=== PATIENT | male | born 1935 | race Caucasian/White ===

== ENCOUNTER 2023-05-13 14:51 | Emergency (ER) | payer MEDICARE ==
[~2023-05-13] VITALS: Ht 160 cm; Wt 70.3 kg
[2023-05-13] MEDS ORDERED: NACL 0.9% 1,000 ML IV SCH (14:55)
[2023-05-13] MEDS ORDERED: cefTRIAXone 1,000 MG in DEXT 5% MINI-BAG PLUS 50 ML IV ONE (14:55)
[2023-05-13 15:05] VITALS: BP 108/59; PULSE 141; RESP 19; TEMP 97.9; O2SAT 98
[2023-05-13] MEDS ORDERED: ceFAZolin 1,000 MG VIAL ONE (15:05)
[2023-05-13] MEDS ORDERED: LORazepam 2 MG/ML VIAL ONE (15:08)
[2023-05-13] MEDS ORDERED: cefTRIAXone 1,000 MG VIAL ONE (15:08)
[2023-05-13] MEDS ORDERED: LORazepam 2 MG/ML VIAL IVP ONE ×2 (15:10→16:30)
[2023-05-13 15:54] LABS: BASOPHILS # (AUTO) 0.1 K/uL (0.00-0.22); BASOPHILS % (AUTO) 0.3 % (0.0-2.0); HEMATOCRIT 41.7 % (36-52); HEMOGLOBIN 13.4 g/dL (12.0-18.0); LYMPHOCYTES # (AUTO) 1.9 K/uL (2.0-11.5); LYMPHOCYTES % (AUTO) 10.6 % (20.5-51.1); MEAN CORPUSCULAR HEMOGLOBIN 31 pg (27-31); MEAN CORPUSCULAR HGB CONC 32 g/dL (33-37); MEAN CORPUSCULAR VOLUME 95.5 fL (80-94); MONOCYTES # (AUTO) 1.7 K/uL (0.8-1.0); MONOCYTES % (AUTO) 9.4 % (1.7-9.3); NEUTROPHILS % (AUTO) 79.7 % (42.2-75.2); PLATELET COUNT (AUTO) 321 K/uL (140-450); RED BLOOD CELL COUNT(AUTO) 4.37 MIL/uL (4.20-6.10); RED CELL DISTRIBUTION WIDTH 15.6 % (11.6-13.7); WHITE BLOOD COUNT (AUTO) 17.5 K/uL (4.8-10.8)
[2023-05-13] MEDS ORDERED: AMIODARONE 150 MG in DEXTROSE 5% 100 ML IV ONE (15:55)
[2023-05-13 16:08] LABS: ALANINE AMINOTRANSFERASE 19 U/L (12-78); ALBUMIN 2.8 g/dL (3.4-5.0); ALKALINE PHOSPHATASE 144 U/L (50-136); ANION GAP 18.4 (8-16); ASPARTATE AMINOTRANSFERASE 27 U/L (15-37); CALCIUM 9.6 mg/dL (8.5-10.1); CARBON DIOXIDE 25.4 mmol/L (21-32); CHLORIDE 114 mmol/L (98-107); CREATININE 1.7 mg/dL (0.6-1.3); GLUCOSE 123 mg/dL (74-106); POTASSIUM 3.8 mmol/L (3.5-5.1); SODIUM SERUM 154 mmol/L (136-145); TOTAL BILIRUBIN 1.8 mg/dL (0.0-1.0); TOTAL PROTEIN, SERUM 7.8 g/dL (6.4-8.2); UREA NITROGEN, BLOOD 56 mg/dL (7-18)
[2023-05-13] MEDS ORDERED: AMIODARONE 150 MG/3 ML VIAL IV ONE (16:10)
[2023-05-13 16:12] LABS: LACTIC ACID 4.6 mmol/L (0.4-2.0)
[2023-05-13] MEDS ORDERED: NACL 0.9% 1,000 ML IV ONE (16:40)
[2023-05-13 16:47] LABS: APPEARANCE,URINE CLEAR (CLEAR); BILIRUBIN,URINE 1+ (NEGATIVE); BLOOD, URINE 3+ (NEGATIVE); COLOR,URINE YELLOW (YELLOW); LEUKOCYTE ESTERASE ,URINE 2+ (NEGATIVE); NITRITE, URINE POSITIVE (NEGATIVE); PH,URINE 5.5 (5.0-9.0); PROTEIN,URINE 2+ (NEGATIVE); UGLUCOSE TRACE (NEGATIVE)
[2023-05-13 16:59] LABS: BACTERIA,URINE >30 (MANY) /HPF (None Seen); SQUAMOUS EPITHELIAL CELL,UR 0-3 (FEW) /LPF (0-3 (FEW))
[2023-05-13 17:00] LABS: ICTOTEST NEGATIVE (NEGATIVE)
[2023-05-13 18:35] LABS: FLU A ANTIGEN negative (NEGATIVE); FLU B ANTIGEN NEGATIVE (NEGATIVE)
[2023-05-13] MEDS ORDERED: ACET10SO IH (19:24)
[2023-05-13] MEDS ORDERED: ASPI-1822 PO (19:24)
[2023-05-13] MEDS ORDERED: PRON INH (19:24)
[2023-05-13] MEDS ORDERED: MEGE400O PO (19:24)
[2023-05-13] MEDS ORDERED: MULT-2246 PO (19:24)
[2023-05-13] MEDS ORDERED: FAMO20TA13 PO (19:24)
[2023-05-13] MEDS ORDERED: VITD400 PO (19:24)
[2023-05-13] MEDS ORDERED: ONDA8TAB13 PO (19:24)
[2023-05-13] MEDS ORDERED: METO50TE2 PO (19:24)
[2023-05-13] MEDS ORDERED: LACT-58 PO (19:24)
[2023-05-13] MEDS ORDERED: ATOR10TA PO (19:24)
[2023-05-13] MEDS ORDERED: QUET25TA PO (19:24)
[2023-05-13] MEDS ORDERED: ASPIRIN 81 MG TAB.CHEW PO ONE (20:35)
[2023-05-13] MEDS ORDERED: ASPIRIN 300 MG SUPP RC ONE (21:20)
[2023-05-14 00:38] VITALS: BP 117/75; PULSE 117; RESP 37; TEMP 98; O2SAT 98
== END 2023-05-14 01:05 | disposition short-term general hospital (02) ==
LOC: MED 14:51
DX: R00.0 Tachycardia, unspecified (principal); Z20.822 Contact with and (suspected) exposure to COVID-19; R06.02 Shortness of breath; N39.0 Urinary tract infection, site not specified; R41.82 Altered mental status, unspecified; F03.90 Unspecified dementia, unspecified severity, without behavioral disturbance, psychotic disturbance, mood disturbance, and anxiety; I10 Essential (primary) hypertension; Z79.899 Other long term (current) drug therapy
CPT/HCPCS: 36415; 70450; 71045; 80053; 81001; 83605; 83880; 84484; 85025; 87040; 87086; 87426; 87804; 93005; 96365; 96366; 96367; 96375; 96376; 99285; J0282; J0690; J0696; J2060; J7030; J7060